=== PATIENT | male | born 1945 | race Caucasian/White ===

== ENCOUNTER 2019-02-26 09:44 | Emergency (ER) | payer MEDICARE | END 2019-02-26 10:13 | disposition home or self-care (01) | LOC: BURERS 09:44 | DX: S39.011A Strain of muscle, fascia and tendon of abdomen, initial encounter (principal); I10 Essential (primary) hypertension; E11.9 Type 2 diabetes mellitus without complications; E78.5 Hyperlipidemia, unspecified; Z79.899 Other long term (current) drug therapy; X58.XXXA Exposure to other specified factors, initial encounter | CPT/HCPCS: 99283 ==

== ENCOUNTER 2020-09-21 10:23 | Emergency (ER) | payer MEDICARE ==
[2020-09-21] MEDS ORDERED: Lisinopril 20 MG TAB ONE (10:51)
== END 2020-09-21 11:12 | disposition home or self-care (01) ==
LOC: BURERS 10:23
DX: I10 Essential (primary) hypertension (principal); E11.9 Type 2 diabetes mellitus without complications; E78.5 Hyperlipidemia, unspecified
CPT/HCPCS: 99283